=== PATIENT | female | born 1955 | race Hispanic/Latino ===

== ENCOUNTER → 2023-02-07 | Outpatient (CLI) | payer OTHER ==
[~2023-02-07] MED LIST: IOHEXOL 350 MG/ML 100ML INFUS..BTL IV ONE
== END | disposition home or self-care (01) ==
LOC: RAH 10:57
PROVIDERS: ATTEND Surgery Surgical Oncology
DX: C25.9 Malignant neoplasm of pancreas, unspecified (principal); M47.815 Spondylosis without myelopathy or radiculopathy, thoracolumbar region; I70.0 Atherosclerosis of aorta
CPT/HCPCS: 74177; Q9967; 74178